=== PATIENT | male | born 1950 | race Caucasian/White ===

== ENCOUNTER 2020-06-25 12:28 | Emergency (ER) | payer OTHER | END 2020-06-25 13:04 | disposition home or self-care (01) | LOC: JVIRT 12:28 | DX: Z11.52 Encounter for screening for COVID-19 (principal) | CPT/HCPCS: C9803; G2012-GT; U0003 ==

== ENCOUNTER 2022-10-25 17:56 | Emergency (ER) | payer OTHER ==
[2022-10-25 18:13] VITALS: BP 143/84; PULSE 66; RESP 18; TEMP 98.2; BMI 26.1
[2022-10-25] MEDS ORDERED: LIDOCAINE HCL 1%, 10 MG/ML (20ML VIAL) ONE (18:31)
[2022-10-25] MEDS ORDERED: DIPHTH,PERTUSS(ACELL),TET 0.5 ML DISP.SYRIN IM ONE ×2 (18:42→18:48)
== END 2022-10-25 18:57 | disposition home or self-care (01) ==
LOC: FER 17:56
PROC: 0HQ0XZZ Repair Scalp Skin, External Approach (ICD-10-PCS; principal; 2022-10-25)
PROC: 3E0234Z Introduction of Serum, Toxoid and Vaccine into Muscle, Percutaneous Approach (ICD-10-PCS; 2022-10-25)
DX: S01.01XA Laceration without foreign body of scalp, initial encounter (principal); W22.8XXA Striking against or struck by other objects, initial encounter; Y99.0 Civilian activity done for income or pay
CPT/HCPCS: 12001-25; 90471; 90715; 99283-25

== ENCOUNTER 2022-11-01 09:09 | Emergency (ER) | payer OTHER ==
[2022-11-01 09:15] VITALS: BP 111/74; PULSE 63; RESP 16; TEMP 97.9; BMI 26.5
== END 2022-11-01 09:35 | disposition home or self-care (01) ==
LOC: FER 09:09
DX: Z48.02 Encounter for removal of sutures (principal); S01.01XD Laceration without foreign body of scalp, subsequent encounter; X58.XXXA Exposure to other specified factors, initial encounter; Y93.9 Activity, unspecified; Y92.9 Unspecified place or not applicable
CPT/HCPCS: 99281-25